=== PATIENT | male | born 1955 | race Caucasian/White ===

== ENCOUNTER 2022-09-24 08:10 | Day surgery (SDC) | payer MEDICARE ==
[~2022-09-24] VITALS: Ht 175.3 cm; Wt 70.0 kg
--- NOTE | ~2022-09-24 | OR ---
[facility] [address] [place], [place] [address] Draft DATE OF OPERATION: 09/24/2022 SURGEON: Gaurang Obregon MD, PH.D. PREOPERATIVE DIAGNOSIS: Prostate adenocarcinoma. POSTOPERATIVE DIAGNOSIS: Prostate adenocarcinoma. PROCEDURE: Rectal ultrasound-guided implantation of radioactive iodine-125 seeds into the prostate gland. ANESTHESIA: General. ESTIMATED BLOOD LOSS: Minimal. COMPLICATIONS: None. ANTIBIOTICS: IV levofloxacin. INDICATIONS: Santiago Rivera is a 67-year-old gentleman, who is diagnosed with a stage T3a N0 M0, [place] grade 4+5=9, PSA 2.3 (on finasteride), prostate adenocarcinoma. He received neoadjuvant and concurrent hormone therapy along with radiation therapy to a dose of 45 Gy in 25 fractions delivered to the pelvic lymph nodes, seminal vesicles, and prostate gland ending on August 25, 2022. He is receiving these radioactive seeds implanted to provide a boost dose of radiation to the prostate gland. PRESCRIPTION DOSE: 110 Gy with iodine-125 seeds with 0.255 millicurie seeds. DESCRIPTION OF PROCEDURE: Following induction of adequate anesthesia, the patient was placed in the treatment planning dorsal lithotomy position. The perineum was prepped with Betadine and a Blank PATIENT NAME: SANTIAGO RIVERA OPERATIVE REPORT DATE OF : 53 REPORT #: [id number] PHYSICIAN: GAURANG OBREGON PCP: JACQUES LYLES DO REPORT IS CONFIDENTIAL AND NOT TO BE RELEASED WITHOUT AUTHORIZATION [facility] [address] [place], [place] [address] Draft catheter was inserted into the bladder without difficulty. The scrotum was elevated onto the abdominal wall and secured with Ioban. The fixation support system was fixed to the table and the ultrasound probe was affixed to the system. Transrectal ultrasound examination of the prostate gland was performed with a 6 MHz probe, taking sagittal and transverse views to localize the prostate gland and to make sure the images conformed to the preoperative plan. Once the proper angulation and position were obtained, the apparatus was fixed in position. The template was then attached to the apparatus. Then, individual preloaded needles were inserted, one needle at a time through the template and perineal skin and into the prostate gland according to the preoperative plan. Each individual needle was identified on the ultrasound images and inserted into position as close as possible to the pretreatment plan on axial images. Two anchor needles were placed initially to help stabilize the prostate gland. Then, starting anteriorly, one row of needles were placed first. The proper depth of each needle was then confirmed on sagittal images and also by measuring the distance from the template to the hub of each needle with a ruler. Then, needles were slowly withdrawn with the stylet in place, so that the stranded seeds were placed in the prostate gland in the proper position. Then, subsequently, rows of needles were placed, one at a time with placement of all the seeds from each row before proceeding to the next row. AP pelvic x-rays were taken periodically to confirm the proper position of the radioactive seeds. There was some difficulty due to pubic arch interference, and the patient's legs were repositioned to a more exaggerated lithotomy position after deploying the first row of seeds. This resulted in better exposure of the prostate gland underneath the pubic arch. The treatment plan called for 94 seeds to be implanted. However, two additional seeds were placed in the area of the median lobe to better cover this area. Therefore, a total of 96 seeds were placed into the prostate gland using 32 needles for a total activity of 24.48 millicuries. However, a strand of three seeds were later recovered during the cystoscopy. Procedure performed by Dr. Cartagena. Therefore, in total, 93 seeds were left in the patient for a total activity of 23.715 millicuries. Following the insertion of the seeds, an AP pelvic x-ray was taken, which revealed seeds to be in the proper position within the pelvis. The patient then had a cystoscopy performed by Dr. Cartagena (see separate operative report). Seeds were seen in the bladder in approximately the location of the median lobe. One strand was grasped with the basket and was removed yielding three total seeds. Another strand had one seed barely visible within the bladder and this was left alone. The patient tolerated the procedure well and was taken to the recovery room in good PATIENT NAME: SANTIAGO RIVERA OPERATIVE REPORT DATE OF : 53 REPORT #: [id number] PHYSICIAN: GAURANG OBREGON PCP: JACQUES LYLES DO REPORT IS CONFIDENTIAL AND NOT TO BE RELEASED WITHOUT AUTHORIZATION [address] [address] Draft condition. The patient will have a voiding trial prior to discharge. The patient will follow with me in one month and will also have a CT scan of the pelvis performed for dosimetric evaluation. He was told to phone our office if he has any difficulties or problems. CONDITION: Stable. Gaurang Obregon MD, PH.D. CHAPIN[place]O/HEATHERL /[id number] cc: Dr. Wiley Lovett Copies: ~ PATIENT NAME: SANTIAGO RIVERA OPERATIVE REPORT DATE OF : 53 REPORT #: [id number] PHYSICIAN: GAURANG OBREGON PCP: JACQUES LYLES DO REPORT IS CONFIDENTIAL AND NOT TO BE RELEASED WITHOUT AUTHORIZATION
[~2022-09-24 08:10] MED LIST: FLOMAX0.4 MG PO; LEVOTHYROXINE125 MC1 PO
--- NOTE | 2022-09-24 11:50 | NUR ---
09/24/22 1150 Ann Sainz 1146 PATIENT ARRIVES TO PACU RESTING WITH EYES CLOSED. OPENS EYES TO VERBAL STIMULI. REACHING FOR MASKED, ENCOUARGED PATIENT TO LEAVE OXYGEN MASK ON. PATIENT BACK TO SLEEP WHEN NOT STIMULATED. RESP EVEN AND UNLABORED, MASK AT 6 LITERS. 1150 OXYGEN TURNED OFF.
--- NOTE | 2022-09-24 13:34 | NUR ---
TO GO BY OFFICE FOR SCRIPT PAIN MEDICINE.
--- NOTE | 2022-09-24 13:56 | NUR ---
1205: PATIENT BACK IN DAY SURGERY ROOM FROM PACU. VOIDED IN PACU PER URINAL. PATIENT STATES STILL HAS URGE TO VOID. PATIENT GIVEN URINAL TO USE AT BEDSIDE. VS CHECKED. RATES PAIN 3/10. SMALL AMOUNT OF RED DRAINAGE FROM PERINEUM. IV SITE WNL. SCDs ON. AT BEDSIDE. CALL LIGHT WITHIN REACH.
--- NOTE | 2022-09-24 13:59 | NUR ---
1225: PATIENT MEDICATED FOR PAIN WITH 1 TAB OF NORCO. TOLERATED CHOCOLATE PUDDING BEFORE TAKING PAIN PILL. TOLERATING WATER. VOID ANOTHER 125 ML OF BLOOD TINGED URINE. 1310: DISCHARGE INSTRUCTIONS GIVEN TO PATIENT AND . 1325: VS CHECKED. IV DC'D WNL. TIP INTACT. DRESSING APPLIED. PATIENT GETTING DRESSED. 1335: PATIENT DISCHARGED TO HOME VIA WHEELCHAIR WITH AND OTHER FAMILY MEMBERS.
--- NOTE | 2022-09-26 10:25 | OR ---
[facility] [address] [facility] [place], [place] [address] Signed DATE OF OPERATION: 09/24/2022 SURGEON: Gabby Kimball MD PREOPERATIVE DIAGNOSES: 1. Prostate cancer. 2. Active treatment with brachytherapy per Dr. Obregon. POSTOPERATIVE DIAGNOSIS: 1. Prostate cancer. 2. Active treatment with brachytherapy per Dr. Obregon. 3. Misplaced brachytherapy seed projecting from the median lobe of the prostate, status post extraction. NAMES OF PROCEDURES: 1. Diagnostic cystoscopy. 2. Extraction of foreign body (brachytherapy seed) from the patient's bladder. ANESTHESIA: General. ESTIMATED BLOOD LOSS: None. COMPLICATIONS: None. SPECIMENS: None. INDICATIONS FOR PROCEDURE: Mr. Rivera is a 67-year-old gentleman, who was recently diagnosed with prostate cancer and who is seeking treatment with radiation treatment in the form of brachytherapy by Dr. Obregon. Dr. Obregon has asked that I evaluate the patient's bladder after placement of brachytherapy seeds. OPERATIVE FINDINGS: On cystoscopy, there was no evidence of any suspicious masses or lesions within the bladder. Bilateral ureteral orifices are in their normal anatomic location effluxing clear urine. There was no evidence of any significant bladder wall trabeculation on Electronically Signed By: GABBY KIMBALL MD 09/26/22 1025 PATIENT NAME: MARCO A RIVERA OPERATIVE REPORT DATE OF : 53 REPORT #: [id number] PHYSICIAN: GABBY KIMBALL MD PCP: JACQUES LYLES DO REPORT IS CONFIDENTIAL AND NOT TO BE RELEASED WITHOUT AUTHORIZATION [facility] [address] [place], [place] [address] Signed cystoscopy. There is a seed actively projecting from the median lobe of the prostate by about 1.5 cm. There was another seed projecting from the middle lobe of the prostate near the base of the bladder on the anterior aspect of the bladder. This seed is projecting only by about 3 mm. The decision was to extract the seed that was projecting at least 1.5 cm from the median lobe of the prostate. A Zero tip basket was used to extract this 3 brachytherapy seeds including the spacer from the patient's bladder without difficulty. DESCRIPTION OF PROCEDURE: After informed consent was obtained, the patient was taken back to the operating room. He underwent brachytherapy by seed placement by Dr. Obregon. Please refer to his note for details. After the seed placement was completed, his indwelling Blank catheter was removed. I then advanced a flexible cystoscope through his urethra and into his bladder under direct visualization. Panendoscopic views of the bladder were then obtained. Please see above findings. I noted the two separate seeds projecting from the median lobe of the prostate. Both seeds appeared to be on the anterior aspect of the bladder near the bladder neck. I successfully extracted the collection of seed that was projecting at least 1.5 cm out from the median lobe of the prostate. The three seeds and the spacer were extracted using a Zero tip basket without difficulty. I re-evaluated the other seed that was only about 3 or 4 mm from the median lobe of the prostate. I was instructed by Dr. Obregon to leave this particular seed as it is as it was not projecting that far into the bladder. I removed the cystoscope and then catheterized the patient using a 16-Malay Blank catheter. I drained the patient's bladder by about one-half per Dr. Obregon's request. The procedure was then terminated. The patient tolerated the procedure well without any complication. He will now be transferred to the postanesthesia care unit in stable condition. Gabby Kimball MD AR/MODL /[id number] Electronically Signed By: GABBY KIMBALL MD 09/26/22 1025 PATIENT NAME: MARCO A RIVERA OPERATIVE REPORT DATE OF : 53 REPORT #: [id number] PHYSICIAN: GABBY KIMBALL MD PCP: JACQUES LYLES DO REPORT IS CONFIDENTIAL AND NOT TO BE RELEASED WITHOUT AUTHORIZATION [address] [place], [place] [address] Signed Copies: ~ Electronically Signed By: GABBY KIMBALL MD 09/26/22 1025 PATIENT NAME: MARCO A RIVERA OPERATIVE REPORT DATE OF : 53 REPORT #: [id number] PHYSICIAN: GABBY KIMBALL MD PCP: JACQUES LYLES DO REPORT IS CONFIDENTIAL AND NOT TO BE RELEASED WITHOUT AUTHORIZATION
== END 2022-09-24 13:35 | disposition home or self-care (01) ==
LOC: DS 08:10
PROVIDERS: Urology; ATTEND Radiology Radiation Oncology
PROC: 0VH071Z Insertion of Radioactive Element into Prostate, Via Natural or Artificial Opening (ICD-10-PCS; principal; 2022-09-24 09:00)
PROC: 0WP Anatomical Regions, General, Removal (ICD-10-PCS; 2022-09-24 09:00)
DX: C61 Malignant neoplasm of prostate (principal); T83.428A Displacement of other prosthetic devices, implants and grafts of genital tract, initial encounter; J44.9 Chronic obstructive pulmonary disease, unspecified; E03.9 Hypothyroidism, unspecified; F17.210 Nicotine dependence, cigarettes, uncomplicated; Y73.2 Prosthetic and other implants, materials and accessory gastroenterology and urology devices associated with adverse incidents
CPT/HCPCS: 76000; 76873; J0131; J1100; J1885; J1956; J2250; J2405; J2704; J2765; J3010; J7121

== ENCOUNTER 2022-10-06 15:34 | Emergency (ER) | payer MEDICARE ==
[~2022-10-06] VITALS: Ht 175.3 cm; Wt 67.9 kg
--- OUTSIDE RECORDS SUMMARY | 2022-10-06 15:36 | XMS ---
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 [place] VISIT COUNT (12 MO.) 1 Katelyn Elizondo [address] TOTAL 2 NOTE: Visits indicate total known visits. ED/UCC VISIT TRACKING (12 MO.) 10/06/2022 15:[address] [facility] K[facility] TYPE: Emergency COMPLAINT: - URINE PROBLEM 09/25/2022 07:26 Katelyn GRISSOM TYPE: Emergency COMPLAINT: - Urinary retention - HEMATURIA UNSPECIFIED - RETENTION OF URINE UNSPECIFIED DIAGNOSES: 0. Retention of urine, unspecified 1. Urinary tract infection, site not specified 4. Hematuria, unspecified 5. Other retention of urine 6. Nicotine dependence, cigarettes, uncomplicated INPATIENT VISIT TRACKING (12 MO.) No inpatient visits to display in this time frame [email or web address]
== END 2022-10-06 19:33 | disposition home or self-care (01) ==
LOC: ED 15:34
DX: R33.9 Retention of urine, unspecified (principal); Z98.890 Other specified postprocedural states
CPT/HCPCS: 51702; 99283-25